=== PATIENT | female | born 1975 | race Asian ===

== ENCOUNTER → 2016-05-24 | Day surgery (SDC) | payer OTHER ==
[~2016-05-24] MED LIST: NO MEDICATIONS; PANTOPRAZOLE SO20 MG PO; TYL325 PO; VITAMIN D250000 UNIT PO; VITAMIN D400 UNI2 PO; ZEGERID 40 MG C1 CAP PO
--- NOTE | ~2016-05-24 | OR ---
Unit #: [id number] #: [id number] Patient: BESSY LOPEZ [id number] [address] [address] [id number] O MR#: [id number] NAME: BESSY LOPEZ ROOM: Date of Procedure: 05/24/2016 Admission Date: 05/24/2016 Surgeon: Kaz Villalobos M.D. : 1975 Attending Physician: Kaz Villalobos M.D. Primary Care Physician: [place] Joel M.D. OPERATIVE REPORT PROCEDURE PERFORMED Esophagogastroduodenoscopy with biopsies. INDICATIONS FOR PROCEDURE The patient with epigastric pain, history of large duodenal ulcer, undergoing evaluation with upper endoscopy. MEDICATIONS Monitored anesthesia. POSTOPERATIVE FINDINGS 1. Moderately severe diffuse gastritis along with duodenitis, significant deformation of the duodenal bulb from previous ulceration, multiple biopsies taken. 2. Normal descending duodenum. 3. Small hiatal hernia. PLAN Follow up on the pathology report. DESCRIPTION OF PROCEDURE The patient was explained of the procedure, risks, and benefits along with risks and benefits of anesthesia. She was brought to the endoscopy room. Propofol anesthesia was given. Bite block was placed. The scope was passed down the mouth into the esophagus, stomach, duodenum, and distal duodenum. Findings as described. Biopsies taken. Gently, I pulled the scope out of the patient's mouth. She tolerated it well. Dictated by... Shani Baeza/carrillo TD: 05/25/2016 02:26 JOB #: [id number] Unit #: [id number] #: [id number] Patient: BESSY LOPEZ OPERATIVE REPORT X Kaz Villalobos MD X PROCEDURE OPERATIVE NOTE
== END | disposition home or self-care (01) ==
LOC: COPS 08:42
DX: K29.50 Unspecified chronic gastritis without bleeding (principal); K29.80 Duodenitis without bleeding; K44.9 Diaphragmatic hernia without obstruction or gangrene; Z87.19 Personal history of other diseases of the digestive system
CPT/HCPCS: 84703; 88305; 88312